=== PATIENT | male | born 2000 ===

== ENCOUNTER 2022-08-06 22:06 | Emergency (ER) | payer BC ==
[2022-08-06] MEDS ORDERED: Lidocaine 1% 30 ML SDV INJECT ONE (22:30)
[2022-08-06] MEDS ORDERED: Bacitracin Oint 1 GM U/D Packet TOP ONE (22:30)
== END 2022-08-06 22:46 | disposition home or self-care (01) ==
LOC: LB.ED 22:06
DX: S61.210A Laceration without foreign body of right index finger without damage to nail, initial encounter (principal); Z88.8 Allergy status to other drugs, medicaments and biological substances; W26.0XXA Contact with knife, initial encounter
CPT/HCPCS: 12001; 99281; 99282